=== PATIENT | male | born 1980 | race Caucasian/White ===

== ENCOUNTER 2020-09-05 15:57 | Inpatient (IN) | payer BC ==
[2020-09-05] VITALS (110 sets, daily range): BP systolic 134–145; BP diastolic 89–99; PULSE 75–97; TEMP 98–98.7; O2SAT 89–100
[~2020-09-05] VITALS: Ht 185.4 cm; Wt 128.9 kg
[~2020-09-05 15:57] MED LIST: CARAFATE 1GM1 G PO; EFFEXOR 3737.5 MG/TA PO; FLEXERIL 1010 MG/TAB PO; LIPITOR 40MG TA40 MG PO; NORCO 325 MG-51 TAB PO; NORVASC 10MG10 MG PO; PERCOCET 325 MG1 TA2 PO; PLAVIX 75MG TAB75 MG PO; PROTONIX 40MG T40 MG PO; TOPROL XL 25MG25 MG; TOPROL XL 25MG25 MG PO; TOPROL XL 50MG50 MG PO; ZANTAC 7575 MG PO; ZESTRIL 10MG10 MG PO; ZOFRAN 4MG T4 MG/TAB PO
[2020-09-05 16:26] LABS: BASO # 0.1 (0.0-0.2); BASO % 0.6 % (0.0-2.0); EOS # 0.3 (0.0-0.7); EOS % 2.5 % (0-4.0); GRAN # 7.6 (1.4-6.5); GRAN % 62.5 % (42.2-75.2); HEMATOCRIT 47.9 % (42.0-52.0); HEMOGLOBIN 17.1 g/dl (13.5-18.0); LYMPH # 3.2 (1.2-3.4); LYMPH % 26.8 % (20.0-51.0); MEAN CELL VOLUME 89 fl (80.0-100.0); MEAN CORPUSCULAR HEMOGLOBIN 32 pg (27.0-31.0); MEAN CORPUSCULAR HGB CONC 36 g/dl (33.0-37.0); MEAN PLATELET VOLUME 9.5 fl (7.4-10.4); MONO # 0.8 (0.1-0.6); MONO % 6.9 % (1.7-9.3); PLATELET COUNT 304 K/mm3 (130-400); RED BLOOD COUNT 5.37 M/mm3 (4.20-5.60); REDCELL DISTRIBUTION WIDTH-CV 13.2 % (11.5-14.5)
[2020-09-05 16:35] LABS: ALANINE AMINOTRANSFERASE 34 U/L (4-49); ALKALINE PHOSPHATASE 93 U/L (50-136); ANION GAP 11 mmol/L (7-16); AST,SGOT 51 U/L (15-37); BILIRUBIN,TOTAL 0.3 mg/dL (0.0-1.0); BLOOD UREA NITROGEN 11 mg/dL (9-20); CALCIUM 9.2 mg/dL (8.4-10.2); CARBON DIOXIDE 18 mmol/L (22-30); CHLORIDE 107 mmol/L (98-107); CREATININE, serum 1.02 (0.66-1.25); GLUCOSE 85 mg/dL (74-106); SODIUM 135 mmol/L (137-145); TOTAL PROTEIN 7.2 gm/dL (6.4-8.2)
[2020-09-05 16:41] LABS: C-REACTIVE PROTEIN < 0.5 mg/dL (0.0-0.9)
[2020-09-05 16:44] LABS: TROPONIN-I < 0.012 ng/mL (0.000-0.035)
[2020-09-05] MEDS ORDERED: CARDIZEM 60MG T60 MG PO (17:14)
[2020-09-05 20:22] LABS: PARTIAL THROMBOPLASTIN TIME 28.6 SECONDS (26.0-37.0)
[2020-09-05] MEDS ORDERED: TOPROL XL100 MG PO (20:32)
--- NOTE | 2020-09-05 21:58 | NUR ---
Patient arrived from the Emergency Department via stretcher. He scooted himself from the stretcher to the bed. He complained of 9/10 back pain, 3/10 chest pain and 6/10 headache. Chel called as I was hooking the patient to vitals. They suggested a CT and pain medicine. Tatiana LEONARDO came down shortly afterwards to speak to the patient and do her assessment. She put in an order for Chest CT and [place] for pain along with other orders. Blood pressure on the left arm is 143/90 and BP on the right arm is 134/95. Morphine and [place] was administered and Patient was taken to CT. The results came back negative. Patient's pain now is a 6/10 back pain, 2/10 head pain and 2/10 chest pain. He is on Heprin gtt at 10 and Nitro gtt at 15. He ate some dinner and will be NPO past midnight.
[2020-09-06] VITALS (278 sets, daily range): BP systolic 93–137; BP diastolic 50–92; PULSE 50–73; TEMP 97.8–98.7; O2SAT 91–100
[2020-09-06 04:45] LABS: BASO % 0.5 % (0.0-2.0); EOS # 0.3 (0.0-0.7); EOS % 4.4 % (0-4.0); GRAN # 3.9 (1.4-6.5); GRAN % 51.7 % (42.2-75.2); HEMATOCRIT 42.7 % (42.0-52.0); LYMPH # 2.8 (1.2-3.4); LYMPH % 36.3 % (20.0-51.0); MEAN CELL VOLUME 91 fl (80.0-100.0); MEAN CORPUSCULAR HEMOGLOBIN 31 pg (27.0-31.0); MEAN CORPUSCULAR HGB CONC 34 g/dl (33.0-37.0); MEAN PLATELET VOLUME 9.2 fl (7.4-10.4); MONO # 0.5 (0.1-0.6); MONO % 6.2 % (1.7-9.3); PLATELET COUNT 223 K/mm3 (130-400); REDCELL DISTRIBUTION WIDTH-CV 13.3 % (11.5-14.5)
[2020-09-06 04:46] LABS: HEMOGLOBIN 14.4 g/dl (13.5-18.0)
[2020-09-06 04:57] LABS: ANION GAP 6 mmol/L (7-16); BLOOD UREA NITROGEN 10 mg/dL (9-20); CALCIUM 8.1 mg/dL (8.4-10.2); CARBON DIOXIDE 22 mmol/L (22-30); CHLORIDE 107 mmol/L (98-107); CHOLESTEROL 169 mg/dL (120-200); CHOLESTEROL RISK RATIO 3.5; CREATININE, serum 1.01 (0.66-1.25); GLUCOSE 88 mg/dL (74-106); HDL CHOLESTEROL 48 mg/dL; LDL CHOLESTEROL 73 mg/dL; POTASSIUM 3.9 mmol/L (3.4-5.0); SODIUM 135 mmol/L (137-145); TRIGLYCERIDE 239 mg/dL
[2020-09-06 05:18] LABS: TROPONIN-I < 0.012 ng/mL (0.000-0.035)
--- NOTE | 2020-09-06 07:05 | NUR ---
RECEIVED REPORT FROM POLLY FARMER. PT SLEEPING BUT AROUSES EASILY WHEN RN WALKS IN. SEE GTT FLOWSHEET. VSS. CALL LIGHT WITHIN REACH.
[2020-09-06] MEDS ORDERED: EFFEXOR XR37.5 MG/CA PO (07:40)
--- NOTE | 2020-09-06 10:02 | NUR ---
ARCHIE met with the patient to discuss discharge plan. The patient lives in [place] with two out of his five of his children. Those children are seventeen and [id number]. He states that his [id number] is staying with a family friend while he is here. He reports independence with ADLs and has a cane. The patient states that his PCP was Dr. Naye Huston, but that she is not longer at [facility]. He states that he is just seeing a PA there now. He receives his medications from [facility]. He reports some difficulties affording his meds. ARCHIE informed him of [facility] and [facility]. The patient does not have a DPOA-HC, but he was interested in obtaining a form. ARCHIE provided. The patient states that he is not . He has five children. Two of them are 18 years-old or older: Rachel Sinclair (20) and Dallas Mejia (18, ph#[phone]). Dallas lives in [place]. ARCHIE informd the patient how those two children would be his legal next of kin. The patient verbalized understanding. The patient plans to return home with his children upon discharge. The patient is to tentatively have a heart cath today. SW to follow as needed. *Discharge plan: home with children*
--- NOTE | 2020-09-06 11:10 | NUR ---
PT CALLS RN TO BEDSIDE. PT STATES THAT HIS BURCH IS BACK AND IS THROBBING ON THE LEFT CONGREGATIONAL, HE IS DIZZY, AND CP IS CURRENTLY 7/10. SEE MAR FOR MEDICATIONS GIVEN. BP CHECKED 121/81, HR 73.
--- NOTE | 2020-09-06 11:35 | NUR ---
RN BACK TO BEDSIDE TO CHECK ON PT. PT STATES HE IS STILL DIZZY AND HIS HEAD IS KILLING HIM BUT STATES CP IS NOW 4/10. DR FRANCO AT BEDSIDE AT THIS TIME FOR ASSESSMENT PRIOR TO CATH PROCEDURE. EXPLAINED TO PHYSICIAN WHAT WAS GOING ON AND WHAT HAS ALREADY BEEN DONE. PHYSICIAN STATES TO DC NITRO GTT AND GIVE FENTANYL AND ATIVAN IV, SEE MAR.
--- NOTE | 2020-09-06 12:21 | NUR ---
SEE MERGE DOCUMENTATION FOR MEDICATION ADMINISTRATION TIMES AND INTRA/POST PROCEDURE SEDATION ASSESSMENTS. RIGHT HAND BARBEAU TEST POSITIVE.
--- NOTE | 2020-09-06 12:56 | NUR ---
PT TO DEVELOPMENT CHEMIST WITH GRIFFIN, RN AT 1156. PT BACK FROM DEVELOPMENT CHEMIST VIA BED WITH GRIFFIN RN AT 1256. RT RADIAL ACCESS WITH TR BAND ON WITH 13ML IN IT. NO BLEEDING OR SWELLING NOTED. PT STATES SMALL CP/ACHEY FEELING 2/10. CALL LIGHT WITHIN REACH. PLACED ON BEDSIDE CONTUOUS MONITOR.
--- NOTE | 2020-09-06 13:33 | NUR ---
Initial visit; Patient thanked Clinical Trial Coordinator for looking in on him and offering God's blessings and to keep him in insurance verification rep's prayers. Clinical Trial Coordinator will follow up.
--- NOTE | 2020-09-06 15:02 | NUR ---
SPOKE WITH DR RICHARDS ABOUT PT'S CATH BEING CLEAN AND TRASNFERRING. PHYSICIAN STATES [facility] WILL PLACE TRANSFER ORDERS. ADDRESSED WITH DR RICHARDS ABOUT PT'S REQUEST FOR A HEAD CT BECAUSE OF HIS DIZZINESS AND HEADACHE THAT HE CAME IN WITH WELL. PHYSICIAN STATES IT IS NOT NECESSARY AT THIS TIME. PT MADE AWARE.
--- NOTE | 2020-09-06 16:45 | NUR ---
REPORT GIVEN TO POLLY PALMA ON MEDICAL. PT TO TRANSFER VIA TO [facility] ON [facility]. ALL PERSONAL BELONGINGS SENT WITH PT. PT ON TELEMETRY.
--- NOTE | 2020-09-06 17:51 | NUR ---
pt complaining of 6/10 chest pain that radiates to the back 8/10. morphine and zofran and norco given for pain. pt reports he felt better with ativan and dilaudid that was given yesterday. pt ordered dinner, tele in place, pt pleasant overall, assessment performed, med rec completed. no other needs.
--- NOTE | 2020-09-06 18:04 | NUR ---
pain reassessed 3/10 in chest and 5/10 in back
[2020-09-07 04:21] VITALS: BP 115/73; PULSE 51; TEMP 97.7
--- NOTE | 2020-09-07 06:16 | NUR ---
PATIENT RESTED QUIETLY IN BED THROUGHOUT THE NIGHT. UPON WAKING THIS MORNING PATIENT REPORTED HE'S A LITTLE LIGHT HEADED AND DIZZY AND CHEST PAIN IS A 6/10. PRN NORCO ADMINISTERED AT THIS TIME. NO OTHER ISSUES NOTED OR REPORTED BY PATIENT.
--- NOTE | 2020-09-07 07:07 | NUR ---
Bedside report compeleted. Patient was resting in bed and awake when entering the room. Patient stated that norco given by nightshift RN did help with his chest pain. At this time the patient has no further complaints.
[2020-09-07 08:16] VITALS: BP 107/81; PULSE 60; TEMP 98
[2020-09-07 09:25] VITALS: BP 130/69; PULSE 60
[2020-09-07 09:26] VITALS: BP 135/79; PULSE 66
[2020-09-07 09:29] VITALS: BP 124/82; PULSE 82
--- NOTE | 2020-09-07 11:46 | NUR ---
This student nurse took the patient for CTA.
[2020-09-07 11:57] VITALS: BP 127/75; PULSE 58; TEMP 97.9
[2020-09-07] MEDS ORDERED: LIPITOR 80MG80 MG PO (12:14)
[2020-09-07] MEDS ORDERED: IMDUR 30MG30 MG/TAB PO (12:19)
[2020-09-07] MEDS ORDERED: ASPIRIN E.C. 8181 MG PO (12:20)
[2020-09-07] MEDS ORDERED: TYLENOL 325MG325 MG PO (12:20)
--- NOTE | 2020-09-07 12:56 | NUR ---
Follow-up: Jose Daniel busy with nurses, waved and got a smile and wave back.
--- NOTE | 2020-09-07 14:29 | NUR ---
pt discharged without complaints. escorted out at 1404
== END 2020-09-07 14:10 | disposition home or self-care (01) | DRG 287 ==
LOC: COL.ER 15:57 → ICU 18:31 → MEDICAL 18:31 → ICU 19:34 → MEDICAL 09-06 17:05
PROVIDERS: Emergency Medicine; Nurse Practitioner Family; ADMIT Internal Medicine
PROC: 4A023N7 Measurement of Cardiac Sampling and Pressure, Left Heart, Percutaneous Approach (ICD-10-PCS; principal; 2020-09-07)
PROC: B2111ZZ Fluoroscopy of Multiple Coronary Arteries using Low Osmolar Contrast (ICD-10-PCS; 2020-09-07)
DX: I25.110 Atherosclerotic heart disease of native coronary artery with unstable angina pectoris (principal); I10 Essential (primary) hypertension; E78.5 Hyperlipidemia, unspecified; F17.210 Nicotine dependence, cigarettes, uncomplicated; M54.10 Radiculopathy, site unspecified; K21.9 Gastro-esophageal reflux disease without esophagitis; I25.2 Old myocardial infarction; F32.9 Major depressive disorder, single episode, unspecified; Z20.822 Contact with and (suspected) exposure to COVID-19; R51.9 Headache, unspecified; R42 Dizziness and giddiness; Z95.5 Presence of coronary angioplasty implant and graft; Z90.49 Acquired absence of other specified parts of digestive tract; Z79.02 Long term (current) use of antithrombotics/antiplatelets
CPT/HCPCS: 99233-AI; 99239; C1769; C1887; J1170; J1644; J2060; J2250; J2270; J2405; J3010; J7030; Q9967

== ENCOUNTER 2020-10-17 14:07 | Emergency (ER) | payer BC ==
[~2020-10-17] VITALS: Ht 185.4 cm; Wt 125.0 kg
[~2020-10-17 14:07] MED LIST changes: +ASPIRIN E.C. 8181 MG PO; +CARDIZEM 60MG T60 MG PO; +EFFEXOR XR37.5 MG/CA PO; +IMDUR 30MG30 MG/TAB PO; +LIPITOR 80MG80 MG PO; +TOPROL XL100 MG PO; +TYLENOL 325MG325 MG PO
[2020-10-17 14:15] VITALS: TEMP 98.2
[2020-10-17 15:01] LABS: PROTHROMBIN TIME 10.9 SECONDS (9.7-12.8)
[2020-10-17 15:04] LABS: ALANINE AMINOTRANSFERASE 28 U/L (4-49); ALBUMIN 3.8 gm/dL (3.5-5.0); ALKALINE PHOSPHATASE 65 U/L (50-136); ANION GAP 5 mmol/L (7-16); AST,SGOT 38 U/L (15-37); BILIRUBIN,TOTAL 0.6 mg/dL (0.0-1.0); BLOOD UREA NITROGEN 11 mg/dL (9-20); CALCIUM 9.1 mg/dL (8.4-10.2); CARBON DIOXIDE 20 mmol/L (22-30); CHLORIDE 107 mmol/L (98-107); GLUCOSE 112 mg/dL (74-106); POTASSIUM 3.8 mmol/L (3.4-5.0); SODIUM 132 mmol/L (137-145); TOTAL PROTEIN 6.8 gm/dL (6.4-8.2)
[2020-10-17 15:05] LABS: BASO % 0.4 % (0.0-2.0); EOS # 0.2 (0.0-0.7); EOS % 2.9 % (0-4.0); GRAN # 4.5 (1.4-6.5); HEMOGLOBIN 16.6 g/dl (13.5-18.0); LYMPH # 1.7 (1.2-3.4); LYMPH % 24.7 % (20.0-51.0); MEAN CELL VOLUME 89 fl (80.0-100.0); MEAN CORPUSCULAR HEMOGLOBIN 31 pg (27.0-31.0); MEAN CORPUSCULAR HGB CONC 35 g/dl (33.0-37.0); MEAN PLATELET VOLUME 9.4 fl (7.4-10.4); MONO # 0.5 (0.1-0.6); MONO % 6.7 % (1.7-9.3); PLATELET COUNT 264 K/mm3 (130-400); RED BLOOD COUNT 5.31 M/mm3 (4.20-5.60); REDCELL DISTRIBUTION WIDTH-CV 12.9 % (11.5-14.5)
[2020-10-17 15:27] LABS: ACETAMINOPHEN < 10 ug/mL (10-30); C-REACTIVE PROTEIN < 0.5 mg/dL (0.0-0.9)
[2020-10-17 15:41] LABS: ERYTHROCYTE SEDIMENTATION RATE 1 mm/hr (0-15)
[2020-10-17] MEDS ORDERED: NORCO 325 MG-51 TAB PO (17:11)
[2020-10-17] MEDS ORDERED: FLEXERIL 1010 MG/TAB PO (17:11)
[2020-10-17 17:30] VITALS: BP 138/94; PULSE 92
== END 2020-10-17 17:30 | disposition home or self-care (01) ==
LOC: COL.ER 14:07
PROVIDERS: Emergency Medicine
DX: M25.551 Pain in right hip (principal); R00.0 Tachycardia, unspecified; I10 Essential (primary) hypertension; E78.5 Hyperlipidemia, unspecified; I25.10 Atherosclerotic heart disease of native coronary artery without angina pectoris; G89.29 Other chronic pain; M54.9 Dorsalgia, unspecified; K21.9 Gastro-esophageal reflux disease without esophagitis; I25.2 Old myocardial infarction; Z79.02 Long term (current) use of antithrombotics/antiplatelets; Z79.899 Other long term (current) drug therapy; Z79.82 Long term (current) use of aspirin
CPT/HCPCS: J3010

== ENCOUNTER 2020-12-27 16:15 | Outpatient (RCR) | payer BC | END 2021-01-22 10:42 | disposition home or self-care (01) | LOC: MKS.ESL.PT 16:15 | DX: M48.062 Spinal stenosis, lumbar region with neurogenic claudication (principal); M51.26 Other intervertebral disc displacement, lumbar region; M54.16 Radiculopathy, lumbar region | CPT/HCPCS: G0283-GP ==